=== PATIENT | male | born 1990 | race Caucasian/White ===

== ENCOUNTER 2017-03-09 14:23 | Emergency (ER) | payer SELFPAY ==
[~2017-03-09] VITALS: Ht 193 cm; Wt 85.0 kg
[2017-03-09] MEDS ORDERED: IOHEXOL 350 MG/ML 10 ML VIAL (for RAD DIAG) IVCONTRAST ONE (14:24)
[2017-03-09 14:27] VITALS: BP 149/96; PULSE 48; RESP 20; TEMP 97.5; O2SAT 100
[2017-03-09] MEDS ORDERED: MORPHINE SULFATE 4 MG/ML INJ IV PUSH ONE (15:45)
[2017-03-09] MEDS ORDERED: SODIUM CHLORIDE 0.9% FLUSH 10 ML FLUSH IVF PRN (15:45)
[2017-03-09 16:00] VITALS: O2SAT 99
--- NOTE | 2017-03-09 16:00 | RADRPT ---
EXAM DATE/TIME: 03/09/2017 15:39 [facility] COMPARISON: No previous studies available for comparison. INDICATIONS : Chest pain. MEDICAL HISTORY : None. SURGICAL HISTORY : None. ENCOUNTER: Initial ACUITY: 1 day PAIN SCORE: 10/10 LOCATION: Bilateral chest FINDINGS: A single view of the chest demonstrates the lungs to be symmetrically aerated without evidence of mas s, infiltrate or effusion. The cardiomediastinal contours are unremarkable. Osseous structures are intact. CONCLUSION: Normal examination. Petra Street MD on March 09, 2017 at 15:58 Board Certified Radiologist. This report was verified electronically.
--- NOTE | 2017-03-09 16:13 | PD ---
HPI Chief Complaint: Chest Pain Time Seen by Provider: 15:14 Travel History International Travel<30 days: No Contact w/Intl Traveler<30days: No Traveled to known affect area: No History of Present Illness HPI This is a 26-year-old male who presents to the emergency department with 1 day of chest discomfort in the left side of his chest, constant, severe, sharp, radiating to the back between the scapular blades. He's never had pain like this before. The pain came on abruptly. He feels little bit short of breath with it but denies any associated nausea or dizziness. He has no history of hypertension, diabetes or hyperlipidemia. He denies any drug use or smoking. His father had an aortic valve replacement in his 50s but neither his parents had early onset heart disease. He is up blood a can runs but says he hasn't lifted weights in 2 weeks and he lifted anything heavy recently. PFSH Past Medical History Narrative Medical cyst on left rib cage, otherwise healthy Social History Alcohol Use: No Tobacco Use: No Substance Use: No Allergies-Medications (Allergen,Severity, Reaction): Coded Allergies: No Known Allergies (Unverified , 03/09/17) Review of Systems Except as stated in HPI: all other systems reviewed are Neg Physical Exam Narrative GENERAL: Uncomfortable appearing, grimacing in pain SKIN: Focused skin assessment warm and dry. HEAD: Atraumatic. Normocephalic. EYES: Pupils equal and round. No injection or drainage. ENT: Moist mucous membranes NECK: Trachea midline. CARDIOVASCULAR: Regular rate and rhythm. No murmur appreciated. RESPIRATORY: Clear to auscultation. Breath sounds equal bilaterally. GASTROINTESTINAL: Abdomen soft, non-tender, nondistended. MUSCULOSKELETAL: No obvious deformities. NEUROLOGICAL: Awake and alert. No obvious cranial nerve deficits. Moving all extremities. PSYCHIATRIC: Appropriate mood and affect; insight and judgment normal. Data Data Last Documented VS Vital Signs Date Time Temp Pulse Resp B/P (MAP) Pulse Ox O2 Delivery O2 Flow Rate FiO2 03/09/17 17:02 52 18 136/69 (91) 99 Room Air 03/09/17 14:27 97.5 Orders Orders Electrocardiogram (03/09/17 15:43) Complete Blood Count With Diff (03/09/17 15:43) Comprehensive Metabolic Panel (03/09/17 15:43) Troponin I (03/09/17 15:43) Chest, Single Ap (03/09/17 15:43) Ecg Monitoring (03/09/17 15:43) Bilateral Bp Monitoring (03/09/17 15:43) Iv Access Insert/Monitor (03/09/17 15:43) Oximetry (03/09/17 15:43) Oxygen Administration (03/09/17 15:43) Morphine Inj (Morphine Inj) (03/09/17 15:45) Sodium Chloride 0.9% Flush (Ns Flush) (03/09/17 15:45) Cta Thor Abd Aorta W Iv C W3d (03/09/17 15:43) Lipase (03/09/17 16:13) Iohexol 350 Inj (Omnipaque 350 Inj) (03/09/17 14:24) Creatine Kinase (Cpk) (03/09/17 17:20) Sodium Chlor 0.9% 1000 Ml Inj (Ns 1000 M (03/09/17 17:30) Ketorolac Inj (Toradol Inj) (03/09/17 17:30) Labs Laboratory Tests Test 03/09/17 16:03 White Blood Count 5.0 TH/MM3 Red Blood Count 4.80 MIL/MM3 Hemoglobin 13.5 GM/DL Hematocrit 40.1 % Mean Corpuscular Volume 83.5 FL Mean Corpuscular Hemoglobin 28.1 PG Mean Corpuscular Hemoglobin Concent 33.6 % Red Cell Distribution Width 13.3 % Platelet Count 229 TH/MM3 Mean Platelet Volume 7.7 FL Neutrophils (%) (Auto) 45.5 % Lymphocytes (%) (Auto) 44.2 % Monocytes (%) (Auto) 9.2 % Eosinophils (%) (Auto) 0.8 % Basophils (%) (Auto) 0.3 % Neutrophils # (Auto) 2.3 TH/MM3 Lymphocytes # (Auto) 2.2 TH/MM3 Monocytes # (Auto) 0.5 TH/MM3 Eosinophils # (Auto) 0.0 TH/MM3 Basophils # (Auto) 0.0 TH/MM3 CBC Comment DIFF FINAL Differential Comment Blood Urea Nitrogen 19 MG/DL Creatinine 1.01 MG/DL Random Glucose 83 MG/DL Total Protein 7.5 GM/DL Albumin 4.2 GM/DL Calcium Level 9.4 MG/DL Alkaline Phosphatase 70 U/L Aspartate Amino Transf (AST/SGOT) 22 U/L Alanine Aminotransferase (ALT/SGPT) 25 U/L Total Bilirubin 0.9 MG/DL Sodium Level 140 MEQ/L Potassium Level 3.6 MEQ/L Chloride Level 103 MEQ/L Carbon Dioxide Level 28.1 MEQ/L Anion Gap 9 MEQ/L Estimat Glomerular Filtration Rate 89 ML/MIN Troponin I LESS THAN 0.02 NG/ML Lipase 202 U/L MDM Medical Decision Making Medical Screen Exam Complete: Yes Emergency Medical Condition: Yes Interpretation(s) afebrile, bradycardic, mild hypertension No leukocytosis Electrolytes are reassuring Troponin is normal Lipase is normal EKG: Right bundle branch block Last 24 hours Impressions Chest X-Ray 03/09/17 1543 Signed Impressions: Service Date/Time: Thursday, March 09, 2017 15:39 - CONCLUSION: Normal examination. Petra Street MD Aorta CTA 03/09/17 1543 Signed Impressions: Service Date/Time: Thursday, March 09, 2017 16:25 - CONCLUSION: Normal examination. The Petra Street MD Differential Diagnosis Acute coronary syndrome, aortic dissection, pneumothorax, costochondritis Narrative Course This is a 26-year-old male who presents to the emergency department with severe left-sided chest discomfort. He was placed on a monitor and an IV was established. EKG demonstrates right bundle branch block but is otherwise nonischemic. Labs are obtained which are reassuring including a normal troponin and lipase. Given his degree of discomfort and his radiation between the shoulder blades I performed a CT to rule out aortic dissection which was reassuring. Patient likely has musculoskeletal chest wall pain. He'll be discharged with an anti-inflammatory and a muscle relaxer. I considered acute coronary syndrome but his pain started at 8 AM this morning and has been constant since then so I think one troponin is adequate to rule this out and he has no risk factors for coronary artery disease. Patient can follow up with his primary care physician as an outpatient or return if his symptoms worsen. Diagnosis Primary Impression: Musculoskeletal chest pain Patient Instructions: General Instructions Additional Instructions: If you develop severe chest pain, shortness of breath, sweating, lightheadedness , dizziness or difficulty breathing return to the emergency department immediately. Followup with your primary care physician in 2-3 days if your symptoms are not resolved. Med/Other Pt SpecificInfo: Prescription(s) given Scripts Cyclobenzaprine (Flexeril) 10 Mg Tab 10 MG PO TID for Muscle Spasm, #10 TAB 0 Refills Prov: Kathie Sarah MD 03/09/17 Naproxen (Naproxen) 500 Mg Tab 500 MG PO BID Y for PAIN SCALE 4 TO 10, #20 TAB 0 Refills Prov: Kathie Sarah MD 03/09/17 Disposition: 01 DISCHARGE HOME Condition: Stable Kathie Sarah MD Mar 09, 2017 16:13
[2017-03-09 16:40] LABS: AUTOMATED NEUTROPHIL # 2.3 TH/MM3 (1.8-7.7); BASOPHIL % 0.3 % (0.0-2.0); EOSINOPHIL % 0.8 % (0.0-4.0); HEMATOCRIT 40.1 % (39.0-51.0); HEMO FLAGS DIFF FINAL; LYMPH % 44.2 % (9.0-44.0); LYMPHOCYTE # 2.2 TH/MM3 (1.0-4.8); MEAN CELL VOLUME 83.5 FL (80.0-100.0); MEAN CORPUSCULAR HEMOGLOBIN 28.1 PG (27.0-34.0); MEAN CORPUSCULAR HGB CONC 33.6 % (32.0-36.0); MONO % 9.2 % (0.0-8.0); NEUT % 45.5 % (16.0-70.0); PLATELET COUNT 229 TH/MM3 (150-450); RED CELL DISTRIBUTION WIDTH 13.3 % (11.6-17.2)
[2017-03-09 16:51] LABS: ANION GAP 9 MEQ/L (5-15); AST (GOT) 22 U/L (15-37); BICARBONATE 28.1 MEQ/L (21.0-32.0); BLOOD UREA NITROGEN 19 MG/DL (7-18); CHLORIDE 103 MEQ/L (98-107); GLOMERULAR FILTRATION RATE 89 ML/MIN (>89); POTASSIUM 3.6 MEQ/L (3.5-5.1); SODIUM (NA) 140 MEQ/L (136-145)
[2017-03-09 16:56] LABS: ALKALINE PHOSPHATASE 70 U/L (45-117); ALT (GPT) 25 U/L (12-78); TOTAL BILIRUBIN ADULT 0.9 MG/DL (0.2-1.0)
--- NOTE | 2017-03-09 17:00 | RADRPT ---
EXAM DATE/TIME: 03/09/2017 16:25 [facility] COMPARISON: No previous studies available for comparison. INDICATIONS : Substernal chest pain and shortness of breath today. IV CONTRAST: 99 cc Omnipaque 350 (iohexol) IV RADIATION DOSE: 6.56 CTDIvol (mGy) MEDICAL HISTORY : None SURGICAL HISTORY : None. ENCOUNTER: Initial ACUITY: 1 day PAIN SCALE: 5/10 LOCATION: substernal chest TECHNIQUE: Volumetric scanning was performed using a multi-row detector CT scanner. The data was post processed with a variety of visualization algorithms including full volume maximum intensity projection, multi -planar sliding thin slab reformation, curved planar reformation, and surface rendering techniques. Using automated exposure control and adjustment of the mA and/or kV according to patient size, radiat ion dose was kept as low as reasonably achievable to obtain optimal diagnostic quality images. DICOM format image data is available electronically for review and comparison. FINDINGS: LUNGS: There is no consolidation or pneumothorax. No concerning pulmonary nodule is visualized. No pleural fluid is present. MEDIASTINUM: No abnormally enlarged lymph nodes by CT criteria. No axillary or hilar abnormalities are identified. ABDOMEN: The liver and spleen are free of focal defects. The gallbladder and pancreas demonstrate no abnormali ty. The adrenal glands are normal. The kidneys demonstrate no evidence of solid renal mass or hydrone phrosis. No free fluid or abdominal masses are identified. No para-aortic adenopathy is seen. PELVIS: No evidence of free fluid or pelvic mass. No abnormally enlarged inguinal or retroperitoneal lymph no kayden are present. The bladder is unremarkable. THORACIC AORTA: The thoracic aortic root is normal with normal branching of the great vessels. There is no evidence of aneurysm or dissection. ABDOMINAL AORTA: The aorta is normal in caliber without aneurysm or dissection. The renal arteries are patent bilater ally. The proximal celiac and superior mesenteric arteries are patent and normal in diameter. PELVIC VESSELS: The internal iliac and external iliac vessels are patent without aneurysm or stenosis. CONCLUSION: Normal examination. The Petra Street MD on March 09, 2017 at 16:58 Board Certified Radiologist. This report was verified electronically.
[2017-03-09 17:02] VITALS: BP 136/69; PULSE 52; RESP 18; O2SAT 99
[2017-03-09] MEDS ORDERED: KETOROLAC TROMETHAMINE 30 MG/ML (IVP) VIAL IV PUSH ONE (17:30)
[2017-03-09] MEDS ORDERED: SODIUM CHLOR 0.9% 1000 ML INJ 1,000 ML IV SCH (17:30)
[2017-03-09] MEDS ORDERED: CYCL1TAB29 PO (17:33)
[2017-03-09] MEDS ORDERED: NAPR500T PO (17:33)
--- NOTE | 2017-03-09 22:19 | EKG ---
Date Performed: 03/09/2017 Time Performed: 15:15:21 PTAGE: 26 years EKG: SINUS BRADYCARDIA MARKED RIGHT AXIS DEVIATION RIGHT BUNDLE BRANCH BLOCK ABNORMAL ECG Compar ed to prior tracing no significant change DOCTOR: Christina Muniz Interpretating Date/Time 03/09/2017 22:19:24
--- NOTE | 2017-03-09 22:19 | EKG ---
Date Performed: 03/09/2017 Time Performed: 15:28:52 PTAGE: 26 years EKG: SINUS BRADYCARDIA MARKED RIGHT AXIS DEVIATION RIGHT BUNDLE BRANCH BLOCK ABNORMAL ECG PREVIOUS TRACING : 03/09/2017 15.15 Compared to prior tracing no significant change DOCTOR: Christina Muniz Interpretating Date/Time 03/09/2017 22:18:33
== END 2017-03-09 19:03 | disposition home or self-care (01) ==
LOC: NEPD 14:23
DX: R07.89 Other chest pain (principal); R06.02 Shortness of breath; I45.10 Unspecified right bundle-branch block; R94.31 Abnormal electrocardiogram [ECG] [EKG]
CPT/HCPCS: 71010; 71275; 74174; 80053; 82550; 83690; 84484; 85025; 93005; 96374; 96375; 99285; J1885; J2270; J7030; Q9967